=== PATIENT | male | born 1965 | race Caucasian/White ===

== ENCOUNTER 2016-08-08 16:47 | Emergency (ER) | payer OTHER | END 2016-08-08 19:27 | disposition home or self-care (01) | LOC: ER1 16:47 | DX: S61.210A Laceration without foreign body of right index finger without damage to nail, initial encounter (principal); Z23 Encounter for immunization; F17.210 Nicotine dependence, cigarettes, uncomplicated; X58.XXXA Exposure to other specified factors, initial encounter; Y92.009 Unspecified place in unspecified non-institutional (private) residence as the place of occurrence of the external cause | CPT/HCPCS: 12001; 73130; 90471; 90714; 99283 ==

== ENCOUNTER 2021-11-29 14:40 | Emergency (ER) | payer OTHER ==
[~2021-11-29 14:40] MED LIST: BACTRIM DS TAB1 EACH PO; BACTROBAN OINT22 GM EXT; IBUPROFEN600 MG PO
[2021-11-30] MEDS ORDERED: BACITRAYCIN PLU28 GM TP (03:17)
== END 2021-11-29 19:57 | disposition left against medical advice (07) ==
LOC: ER1 14:40
DX: Z53.21 Procedure and treatment not carried out due to patient leaving prior to being seen by health care provider (principal)

== ENCOUNTER 2021-11-29 23:18 | Emergency (ER) | payer OTHER ==
[2021-11-30] MEDS ORDERED: BACITRAYCIN PLU28 GM TP (03:17)
== END 2021-11-30 03:50 | disposition home or self-care (01) ==
LOC: ER1 23:18
DX: S61.300A Unspecified open wound of right index finger with damage to nail, initial encounter (principal); F17.200 Nicotine dependence, unspecified, uncomplicated; W26.0XXA Contact with knife, initial encounter; Y99.0 Civilian activity done for income or pay; Z23 Encounter for immunization
CPT/HCPCS: 73140; 90471; 90715; 99283